=== PATIENT | female | born 1980 | race Caucasian/White ===

== ENCOUNTER 2017-04-20 23:38 | Emergency (ER) | payer OTHER ==
[~2017-04-20] VITALS: Ht 162.6 cm; Wt 65.8 kg
[~2017-04-20 23:38] MED LIST: ALBU90OI INH; AZIT500 PO; Augmentin 875-1 EACH PO; BUPR75 PO; BUSP10 PO; CODGUAEL PO; CYCL10 PO; DIAZ5 PO; DIPH50 PO; FAMO40 PO; HYDACE5 PO; IBUP600 PO; IBUP800 PO; METPRE4DP PO; NAPR500 PO; OLOP.1OPSO OD; ONDA4ODT MM; PENVK500 PO; PROACE100 PO; PROM25 PO; Pepcid40 MG PO; RXCODGUASY PO; SULTRIDS PO; TRAM50 PO; TRAZ100 PO; TRAZ50 PO; TUSSIN COUGH
== END 2017-04-21 01:35 | disposition home or self-care (01) ==
LOC: ER 23:38
DX: R51 Headache (principal); Z88.8 Allergy status to other drugs, medicaments and biological substances; J45.909 Unspecified asthma, uncomplicated; Z87.891 Personal history of nicotine dependence
CPT/HCPCS: 96372; 99283; J1200; J1885

== ENCOUNTER 2018-08-12 11:13 | Emergency (ER) | payer OTHER ==
[~2018-08-12] VITALS: Ht 160 cm; Wt 63.5 kg
[2018-08-12] MEDS ORDERED: Amoxicillin500 MG PO (11:18)
[2018-08-12] MEDS ORDERED: LIDO700A20 TOP (12:13)
[2018-08-12] MEDS ORDERED: KETO10 PO (12:13)
[2018-08-12] MEDS ORDERED: Cyclobenzaprine5 MG PO (12:13)
== END 2018-08-12 12:18 | disposition home or self-care (01) ==
LOC: ER 11:13
DX: S39.012A Strain of muscle, fascia and tendon of lower back, initial encounter (principal); J45.909 Unspecified asthma, uncomplicated; Z88.8 Allergy status to other drugs, medicaments and biological substances; Z87.891 Personal history of nicotine dependence; X58.XXXA Exposure to other specified factors, initial encounter
CPT/HCPCS: 96372; 99283-25; J1885

== ENCOUNTER 2020-03-11 07:17 | Day surgery (SDC) | payer OTHER ==
[~2020-03-11 07:17] MED LIST changes: +Amoxicillin500 MG PO; +Cyclobenzaprine5 MG PO; +Flagyl500 MG PO; +KETO10 PO; +LIDO700A20 TOP
== END 2020-03-11 23:00 | disposition home or self-care (01) ==
LOC: WOUND 07:17
DX: S31.103A Unspecified open wound of abdominal wall, right lower quadrant without penetration into peritoneal cavity, initial encounter (principal); L03.311 Cellulitis of abdominal wall; L02.211 Cutaneous abscess of abdominal wall; I96 Gangrene, not elsewhere classified; J45.909 Unspecified asthma, uncomplicated; Z87.891 Personal history of nicotine dependence; Z91.013 Allergy to seafood; Z88.8 Allergy status to other drugs, medicaments and biological substances; X58.XXXA Exposure to other specified factors, initial encounter
CPT/HCPCS: G0463

== ENCOUNTER → 2021-10-28 | Outpatient (CLI) | payer OTHER ==
[2021-10-29 15:11] LABS: HPV 16 Negative (Negative); HPV 18 Negative (Negative); HPV OTHER HR TYPES Negative (Negative)
== END | disposition home or self-care (01) ==
LOC: LAB SHORT 15:41 → LAB 15:41
PROVIDERS: Advanced Practice Midwife
DX: Z01.419 Encounter for gynecological examination (general) (routine) without abnormal findings (principal)
CPT/HCPCS: 87624; G0123

== ENCOUNTER 2022-05-07 18:19 | Emergency (ER) | payer OTHER ==
[~2022-05-07] VITALS: Ht 157.5 cm; Wt 61.7 kg
[2022-05-07] MEDS ORDERED: AMOX875 PO (20:32)
[2022-05-07] MEDS ORDERED: NEURONTIN300 MG PO (20:33)
[2022-05-07] MEDS ORDERED: Bupropion HCl75 MG PO (20:33)
[2022-05-07] MEDS ORDERED: MELO7.5 PO (20:35)
[2022-05-07] MEDS ORDERED: SENNA LAXATIVE8.6 MG PO (20:35)
[2022-05-07] MEDS ORDERED: TRAZ50 (20:36)
[2022-05-07] MEDS ORDERED: ONDA4ODT (20:36)
[2022-05-07] MEDS ORDERED: Cymbalta20 MG (20:37)
[2022-05-07 20:53] LABS: Albumin, Blood 3.2 g/dL (3.4-5.0); Bilirubin, Total 0.1 mg/dL (0.1-1.0); Bun/Creatinine Ratio 21.7 (12.0-20.0); Calcium, Blood 7.9 mg/dL (8.5-10.1); Creatinine, Blood 0.55 mg/dL (0.40-1.00); Globulin, Blood 3.1 g/dL (2.2-4.0); Potassium, Blood 3.6 mmol/L (3.5-5.5); Total Protein, Blood 6.3 g/dL (6.4-8.2)
[2022-05-07 21:17] LABS: BASOPHILS ABSOLUTE AUTO 0.05 K/mm3 (0.00-0.23); BASOPHILS PERCENT AUTO 1 % (0-2); EOSINOPHILS ABSOLUTE AUTO 0.34 K/mm3 (0.00-0.68); EOSINOPHILS PERCENT AUTO 3 % (0-6); Hematocrit 35.8 % (33.0-51.0); Hemoglobin 12.2 g/dL (11.5-16.0); IMMATURE GRAN ABSOLUTE AUTO 0.03 K/mm3 (0.00-0.10); IMMATURE GRAN PERCENT AUTO 0 % (0-1); LYMPHOCYTES ABSOLUTE AUTO 2.68 K/mm3 (0.84-5.20); LYMPHOCYTES PERCENT AUTO 27 % (21-46); MONOCYTES ABSOLUTE AUTO 0.76 K/mm3 (0.16-1.47); MONOCYTES PERCENT AUTO 8 % (4-13); Mean Corpuscular HGB 31.7 pg (26.0-34.0); Mean Corpuscular HGB Conc 34.1 g/dL (31.5-36.5); Mean Corpuscular Volume 93 fL (80-100); Mean Platelet Volume 9.1 fL (9.1-12.4); NEUTROPHILS ABSOLUTE AUTO 6.17 K/mm3 (1.96-9.15); NEUTROPHILS PERCENT AUTO 62 % (41-73); Platelet Count 364 K/mm3 (150-400); RDW Standard Deviation 40.8 fL (35.1-46.3); Red Blood Cell Count 3.85 M/mm3 (3.80-5.20); White Blood Cell Count 10.03 K/mm3 (4.00-11.30)
[2022-05-07] MEDS ORDERED: MIRALAX17 GM PO (21:30)
== END 2022-05-07 21:52 | disposition home or self-care (01) ==
LOC: ER 18:19
PROVIDERS: Student in an Organized Health Care Education/Training Program
DX: K59.00 Constipation, unspecified (principal); R42 Dizziness and giddiness; Z79.899 Other long term (current) drug therapy; Z88.1 Allergy status to other antibiotic agents; Z88.8 Allergy status to other drugs, medicaments and biological substances; Z87.891 Personal history of nicotine dependence
CPT/HCPCS: 36415; 71046; 74018; 80053; 85025; 93005; 93010; 96374; 99284-25; A9270; J1885

== ENCOUNTER 2022-05-26 03:42 | Emergency (ER) | payer OTHER ==
[~2022-05-26] VITALS: Ht 157.5 cm; Wt 61.2 kg
[~2022-05-26 03:42] MED LIST changes: +AMOX875 PO; +Bupropion HCl75 MG PO; +Cymbalta20 MG; +MELO7.5 PO; +MIRALAX17 GM PO; +NEURONTIN300 MG PO; +ONDA4ODT; +SENNA LAXATIVE8.6 MG PO; +TRAZ50
[2022-05-26 05:47] LABS: BASOPHILS ABSOLUTE AUTO 0.06 K/mm3 (0.00-0.23); BASOPHILS PERCENT AUTO 0 % (0-2); EOSINOPHILS ABSOLUTE AUTO 0.18 K/mm3 (0.00-0.68); EOSINOPHILS PERCENT AUTO 1 % (0-6); Hematocrit 40.7 % (33.0-51.0); IMMATURE GRAN ABSOLUTE AUTO 0.08 K/mm3 (0.00-0.10); IMMATURE GRAN PERCENT AUTO 0 % (0-1); LYMPHOCYTES ABSOLUTE AUTO 1.69 K/mm3 (0.84-5.20); LYMPHOCYTES PERCENT AUTO 9 % (21-46); MONOCYTES ABSOLUTE AUTO 1.14 K/mm3 (0.16-1.47); MONOCYTES PERCENT AUTO 6 % (4-13); Mean Corpuscular HGB 31.9 pg (26.0-34.0); Mean Corpuscular HGB Conc 34.4 g/dL (31.5-36.5); Mean Corpuscular Volume 93 fL (80-100); Mean Platelet Volume 8.9 fL (9.1-12.4); NEUTROPHILS ABSOLUTE AUTO 16.45 K/mm3 (1.96-9.15); NEUTROPHILS PERCENT AUTO 84 % (41-73); Platelet Count 285 K/mm3 (150-400); RDW Coefficient Variation 12.2 % (11.7-14.2); RDW Standard Deviation 42.1 fL (35.1-46.3); Red Blood Cell Count 4.39 M/mm3 (3.80-5.20)
[2022-05-26 06:07] LABS: Albumin, Blood 3.5 g/dL (3.4-5.0); Albumin/Globulin Ratio 0.9 (0.8-1.8); Bilirubin, Total 0.2 mg/dL (0.1-1.0); Calcium, Blood 8.7 mg/dL (8.5-10.1); Creatinine, Blood 0.63 mg/dL (0.40-1.00); Globulin, Blood 3.9 g/dL (2.2-4.0); Potassium, Blood 3.9 mmol/L (3.5-5.5); Total Protein, Blood 7.4 g/dL (6.4-8.2)
[2022-05-26 07:50] LABS: Source, Urine Clean Catch
[2022-05-26 08:02] LABS: Bilirubin, Urine Neg (Neg); Blood, Urine Neg (Neg); Glucose Qualitative, Urine Neg (Neg); Ketones, Urine Neg (Neg); Leukocyte Esterase, Urine 1+ (Neg); Nitrite, Urine Neg (Neg); Protein, Urine Neg (Neg); Specific Gravity, Urine 1.015 (1.003-1.022); Urobilinogen, Urine NORM (Normal)
[2022-05-26 08:11] LABS: Appearance, Urine Hazy (Clear); Bacteria Few /hpf; Color, Urine Yellow (P-Yellow); Red Blood Cells, Urine Not Seen /hpf (0-2); Squamous Epithelial Cells Few /hpf (Few)
[2022-05-26 08:26] LABS: Influenza A, PCR NEGATIVE (NEGATIVE); Influenza B, PCR NEGATIVE (NEGATIVE); Resp Syncytial Virus, PCR NEGATIVE (NEGATIVE); SARS-Cov-2 (COVID-19) PCR, MMC NEGATIVE (NEGATIVE)
[2022-05-26] MEDS ORDERED: ONDA4ODT MM (08:41)
== END 2022-05-26 08:45 | disposition home or self-care (01) ==
LOC: ER 03:42
PROVIDERS: Emergency Medicine; Student in an Organized Health Care Education/Training Program
DX: R10.30 Lower abdominal pain, unspecified (principal); F17.290 Nicotine dependence, other tobacco product, uncomplicated; Z88.1 Allergy status to other antibiotic agents; Z88.8 Allergy status to other drugs, medicaments and biological substances; Z79.899 Other long term (current) drug therapy; Z20.822 Contact with and (suspected) exposure to COVID-19
CPT/HCPCS: 0241U; 36415; 80053; 81001; 81025; 83690; 85025; 87086; 93005; 93010; 96374; 96375; 99284-25; J1885; J2405; J7030

== ENCOUNTER 2022-07-18 11:45 | Emergency (ER) | payer OTHER ==
[~2022-07-18] VITALS: Ht 157.5 cm; Wt 60.3 kg
[2022-07-18 12:07] VITALS: BP 147/92
[2022-07-18] MEDS ORDERED: Voltaren100 GM TOP (13:18)
[2022-07-18] MEDS ORDERED: LIDO700A20 TOP (13:18)
== END 2022-07-18 13:28 | disposition home or self-care (01) ==
LOC: ER 11:45
DX: M16.12 Unilateral primary osteoarthritis, left hip (principal); F17.290 Nicotine dependence, other tobacco product, uncomplicated; Z88.1 Allergy status to other antibiotic agents; Z88.8 Allergy status to other drugs, medicaments and biological substances; W18.42XA Slipping, tripping and stumbling without falling due to stepping into hole or opening, initial encounter
CPT/HCPCS: 96372; 99283-25; A9270; J1885